=== PATIENT | female | born 1965 | race African-American/Black ===

== ENCOUNTER 2023-03-25 17:06 | Emergency (ER) | payer MEDICAID ==
[~2023-03-25] VITALS: Ht 167.6 cm; Wt 98.0 kg
[~2023-03-25 17:06] MED LIST: APIX5TAB PO; ATOR40TA70 PO; CARV6.2548 PO; DICL100G58 TP; DULO30CA52 PO; EMPA1TAB24 PO; FAMO20TA8 PO; LORA10TA7 PO; LOSA25TA26 PO; SENN-257 PO
[2023-03-25 17:16] VITALS: BP 131/74; RESP 16; TEMP 98.7; O2SAT 98
[2023-03-25 17:19] VITALS: PULSE 83
== END 2023-03-25 20:18 | disposition left against medical advice (07) ==
LOC: ER 17:06
DX: Z53.21 Procedure and treatment not carried out due to patient leaving prior to being seen by health care provider (principal)
CPT/HCPCS: 93005; 99281